=== PATIENT | female | born 1985 ===

== ENCOUNTER → 2022-02-22 | Outpatient (CLI) | payer OTHER | LOC: MC.RAD 14:00 | DX: Z98.890 Other specified postprocedural states (principal) ==

== ENCOUNTER → 2022-02-22 | Outpatient (CLI) | payer OTHER | LOC: ZCOL.LAB 18:06 | DX: Z01.89 Encounter for other specified special examinations (principal) ==

== ENCOUNTER → 2022-03-12 | Outpatient (CLI) | payer BC | LOC: MC.RAD 11:00 → COL.LAB 13:55 → MC.RAD 14:00 | DX: N64.89 Other specified disorders of breast (principal); Z98.890 Other specified postprocedural states ==

== ENCOUNTER → 2022-06-02 | Outpatient (CLI) | payer BC | LOC: MC.RAD 14:00 | DX: N63.13 Unspecified lump in the right breast, lower outer quadrant (principal) ==